=== PATIENT | female | born 1950 | race Two or more races ===

== ENCOUNTER 2024-04-12 10:49 | Inpatient (IN) | payer OTHER ==
[~2024-04-12] VITALS: Ht 170.2 cm; Wt 72.6 kg
[2024-04-12] MEDS ORDERED: B12 ACTIVE1000 MCG PO (15:32)
[2024-04-12] MEDS ORDERED: SIMVASTATIN5 MG PO (15:32)
[2024-04-12] MEDS ORDERED: XARELTO10 MG PO (15:32)
[2024-04-12] MEDS ORDERED: LASIX20 MG PO (15:32)
[2024-04-12 15:33] VITALS: BP 128/71
[2024-04-18] MEDS ORDERED: HEMOSTATIC MATRIX 1 KIT KIT TOP ONE (10:03)
[2024-04-18] MEDS ORDERED: LIDOCAINE HCL 1%/EPINEPHRINE 20ML VIAL IJ ONE (10:04)
[2024-04-18] MEDS ORDERED: DIBUCAINE 30 GM TUBE ONE (10:04)
[2024-04-18] MEDS ORDERED: BUPIVACAINE HCL/MPF 0.5% 30ML VIAL ONE (10:04)
[2024-04-18] MEDS ORDERED: POVIDONE-IODINE 118 ML BOTT TOP ONE (10:04)
[2024-04-18] MEDS ORDERED: METRONIDAZOLE/SODIUM CHLORIDE 500 MG/100 ML PIGGYBACK IV ONE (10:07)
[2024-04-18] MEDS ORDERED: levoFLOXacin IN DEXTROSE 5 % 5 MG/ML PIGGYBAG IV ONE (10:07)
[2024-04-18] MEDS ORDERED: MORPHINE SULFATE 2 MG/ML CARTRIDGE IV ONE (12:50)
[2024-04-18] MEDS ORDERED: 0.9 % SODIUM CHLORIDE 1,000 ML IV SCH (13:00)
[2024-04-18] MEDS ORDERED: MORPHINE SULFATE 4 MG/ML CARTRIDGE IV PRN (13:00)
[2024-04-18] MEDS ORDERED: HYOSCYAMINE SULFATE 0.125 MG TAB.SUBL SL SCH (13:00)
[2024-04-18] MEDS ORDERED: ONDANSETRON HCL 2 MG/ML VIAL IV PRN (13:00)
[2024-04-18] MEDS ORDERED: OxyCODONE HCL 5 MG TABLET (ROXICODONE) PO PRN (13:00)
[2024-04-18 13:45] LABS: HEMATOCRIT 34.7 % (36.0-45.00); HEMOGLOBIN 11.3 g/dL (12.0-15.00); MEAN CORPUSCULAR HGB CONC 32.7 g/dl (32.0-36.0); PLATELET COUNT 197 K/uL (150-450); RED BLOOD COUNT 3.65 M/uL (4.00-6.00)
[2024-04-18] MEDS ORDERED: ACETAMINOPHEN 500 MG GEL..CAP PO SCH (14:00)
[2024-04-18] MEDS ORDERED: METOCLOPRAMIDE HCL 5 MG/ML VIAL ONE (16:08)
[2024-04-18] MEDS ORDERED: POLYETHYLENE GLYCOL 3350 17 GM BLIST.PACK PO SCH (17:00)
[2024-04-18] MEDS ORDERED: METOCLOPRAMIDE HCL 5 MG/ML VIAL IV SCH (17:00)
[2024-04-18] MEDS ORDERED: GABAPENTIN 300 MG CAPSULE PO SCH (17:00)
[2024-04-18] MEDS ORDERED: CELECOXIB 200 MG CAPSULE PO SCH (17:00)
[2024-04-18 17:11] VITALS: BP 110/56; O2SAT 98
[2024-04-18] MEDS ORDERED: FAMOTIDINE/PF 20 MG/2 ML VIAL IV PUSH SCH (21:00)
[2024-04-19 00:53] VITALS: BP 92/58; O2SAT 98
[2024-04-19 06:46] LABS: HEMATOCRIT 37.8 % (36.0-45.00); HEMOGLOBIN 12.4 g/dL (12.0-15.00); MEAN CELL VOLUME 94.8 fL (80.00-100.00); MEAN CORPUSCULAR HGB CONC 32.7 g/dl (32.0-36.0); PLATELET COUNT 200 K/uL (150-450); RED BLOOD COUNT 3.99 M/uL (4.00-6.00); RED CELL DISTRIBUTION WIDTH 17.3 % (11.5-14.5)
[2024-04-19 07:41] LABS: ALBUMIN 2.5 gm/dL (3.4-5.0); CREATININE SERUM 0.58 mg/dL (0.55-1.02); GFR 102.19; MAGNESIUM 1.8 mg/dL (1.8-2.4); PHOSPHOROUS 2.7 mg/dL (2.5-4.9); POTASSIUM 4.18 mEq/L (3.5-5.1)
[2024-04-19] MEDS ORDERED: DEXTROSE 50 % IN WATER 0.5 G/ML DISP.SYRIN IV ONE (07:46)
[2024-04-19 08:00] VITALS: BP 104/67; O2SAT 98
[2024-04-19] MEDS ORDERED: LACTOBACILLUS ACIDOPHILUS 1 CAP CAP PO SCH (09:00)
[2024-04-19] MEDS ORDERED: LACTULOSE 20 G/30 ML BLIST.PACK PO SCH (09:00)
[2024-04-19] MEDS ORDERED: ENOXAPARIN SODIUM 40 MG/0.4 ML SYRINGE SUBCUTANEO SCH (17:00)
[2024-04-20] MEDS ORDERED: ENOXAPARIN SODIUM 40 MG/0.4 ML SYRINGE SUBCUTANEO SCH (09:00)
== END 2024-04-19 10:23 | disposition home or self-care (01) | DRG 376 ==
LOC: O/R 04-18 06:08 → SURG 04-18 11:15 → SURH 04-18 14:28 → SURG 04-18 20:15 → SURH 04-19 10:23
PROVIDERS: ADMIT Colon & Rectal Surgery; ATTEND Colon & Rectal Surgery
PROC: 0DBP8ZZ Excision of Rectum, Via Natural or Artificial Opening Endoscopic (ICD-10-PCS; principal; 2024-04-18 20:15)
DX: C21.1 Malignant neoplasm of anal canal (principal); Z20.822 Contact with and (suspected) exposure to COVID-19
CPT/HCPCS: 0184T; 45123